=== PATIENT | female | born 1950 | race Two or more races ===

== ENCOUNTER 2022-12-11 08:53 | Inpatient (IN) | payer OTHER ==
[~2022-12-11] VITALS: Ht 160 cm; Wt 65.8 kg
[2022-12-11] MEDS ORDERED: GLUMETZA500 MG (09:14)
[2022-12-17] MEDS ORDERED: TYLENOL ARTHRI650 MG (08:48)
[2022-12-17] MEDS ORDERED: OLOPATADINE HCL5 ML (08:48)
== END 2022-12-21 17:51 | disposition home or self-care (01) | DRG 417 ==
LOC: ER 08:53 → MEDJ 21:46
PROVIDERS: Surgery; ADMIT Internal Medicine; ATTEND Internal Medicine
PROC: BW21YZZ Computerized Tomography (CT Scan) of Abdomen and Pelvis using Other Contrast (ICD-10-PCS; 2022-12-11)
PROC: BF37ZZZ Magnetic Resonance Imaging (MRI) of Pancreas (ICD-10-PCS; 2022-12-11)
PROC: BW40ZZZ Ultrasonography of Abdomen (ICD-10-PCS; 2022-12-12)
PROC: BF13YZZ Fluoroscopy of Gallbladder and Bile Ducts using Other Contrast (ICD-10-PCS; 2022-12-18)
PROC: 0FT44ZZ Resection of Gallbladder, Percutaneous Endoscopic Approach (ICD-10-PCS; principal; 2022-12-18 14:00)
DX: K80.10 Calculus of gallbladder with chronic cholecystitis without obstruction (principal); K85.90 Acute pancreatitis without necrosis or infection, unspecified; K29.70 Gastritis, unspecified, without bleeding; D72.89 Other specified disorders of white blood cells

== ENCOUNTER 2022-12-28 22:05 | Emergency (ER) | payer OTHER ==
[~2022-12-28] VITALS: Ht 162.6 cm; Wt 63.5 kg
[~2022-12-28 22:05] MED LIST: GLUMETZA500 MG; OLOPATADINE HCL5 ML; TYLENOL ARTHRI650 MG
== END 2022-12-29 13:40 | disposition home or self-care (01) ==
LOC: ER 22:05
DX: R50.9 Fever, unspecified (principal); Z98.890 Other specified postprocedural states; E11.9 Type 2 diabetes mellitus without complications; Z79.84 Long term (current) use of oral hypoglycemic drugs; Z91.012 Allergy to eggs; Z91.013 Allergy to seafood; Z88.0 Allergy status to penicillin

== ENCOUNTER 2023-01-06 23:55 | Inpatient (IN) | payer OTHER ==
[~2023-01-06] VITALS: Ht 172.7 cm; Wt 64.0 kg
== END 2023-01-21 19:20 | disposition home or self-care (01) | DRG 814 ==
LOC: ER 23:55 → SURH 01-07 10:01 → ICU 01-12 13:51 → MEDJ 01-19 19:45
PROVIDERS: ADMIT Internal Medicine; ATTEND Internal Medicine
PROC: BF37ZZZ Magnetic Resonance Imaging (MRI) of Pancreas (ICD-10-PCS; principal; 2023-01-07)
PROC: BW40ZZZ Ultrasonography of Abdomen (ICD-10-PCS; 2023-01-07)
PROC: 02HV33Z Insertion of Infusion Device into Superior Vena Cava, Percutaneous Approach (ICD-10-PCS; 2023-01-08)
PROC: B54DZZZ Ultrasonography of Bilateral Lower Extremity Veins (ICD-10-PCS; 2023-01-09)
PROC: 4A12X4Z Monitoring of Cardiac Electrical Activity, External Approach (ICD-10-PCS; 2023-01-10)
PROC: B246ZZZ Ultrasonography of Right and Left Heart (ICD-10-PCS; 2023-01-11)
PROC: 30233R1 Transfusion of Nonautologous Platelets into Peripheral Vein, Percutaneous Approach (ICD-10-PCS; 2023-01-12)
PROC: BW21YZZ Computerized Tomography (CT Scan) of Abdomen and Pelvis using Other Contrast (ICD-10-PCS; 2023-01-20)
PROC: BB24Y0Z Computerized Tomography (CT Scan) of Bilateral Lungs using Other Contrast, Unenhanced and Enhanced (ICD-10-PCS; 2023-01-20)
DX: D72.828 Other elevated white blood cell count (principal); I50.23 Acute on chronic systolic (congestive) heart failure; K85.90 Acute pancreatitis without necrosis or infection, unspecified; N39.0 Urinary tract infection, site not specified; I48.91 Unspecified atrial fibrillation; D69.49 Other primary thrombocytopenia; D64.9 Anemia, unspecified; E11.65 Type 2 diabetes mellitus with hyperglycemia; Z79.4 Long term (current) use of insulin; F43.20 Adjustment disorder, unspecified; D53.0 Protein deficiency anemia